=== PATIENT | male | born 1980 | race Caucasian/White ===

== ENCOUNTER 2017-07-29 17:35 | Emergency (ER) | payer SELFPAY ==
[~2017-07-29] VITALS: Ht 210.8 cm; Wt 59.9 kg
[~2017-07-29 17:35] MED LIST: EPIPEN 2-P0.3 MG/0.3; IBUPROFEN600 MG PO; LEVOFLOXACIN500 MG PO; NORCO 5-325 TA1 EACH PO; SOMA350 MG PO
--- NOTE | 2017-07-30 13:22 | EKG ---
[facility] [address] [facility] [place], [place] [address] Signed Normal sinus rhythm Normal ECG No previous ECGs available Confirmed by ARMANDO BARDALES MD ([id number] on 07/30/2017 1:21:59 PM Electronically Signed By: ARMANDO BARDALES MD 07/30/17 1322 PATIENT NAME: PARTHA BRODY Electrocardiogram DATE OF : 78 PHYSICIAN: ARMANDO BARDALES MD REPORT #: [id number] REPORT IS CONFIDENTIAL AND NOT TO BE RELEASED WITHOUT AUTHORIZATION
== END 2017-07-29 22:14 | disposition home or self-care (01) ==
LOC: ED 17:35
DX: E86.0 Dehydration (principal); B34.9 Viral infection, unspecified; F17.200 Nicotine dependence, unspecified, uncomplicated; Z91.030 Bee allergy status; Z88.5 Allergy status to narcotic agent; Z79.899 Other long term (current) drug therapy
CPT/HCPCS: 71020; 80053; 85025; 93005; 93010; 96360; 99284; J7030

== ENCOUNTER 2019-04-02 09:31 | Emergency (ER) | payer SELFPAY ==
[~2019-04-02] VITALS: Ht 210.8 cm; Wt 62.6 kg
[2019-04-02] MEDS ORDERED: ULTRAM50 MG PO (11:17)
== END 2019-04-02 11:26 | disposition home or self-care (01) ==
LOC: ED 09:31
DX: S99.911A Unspecified injury of right ankle, initial encounter (principal); F17.200 Nicotine dependence, unspecified, uncomplicated; Z91.030 Bee allergy status; Z88.5 Allergy status to narcotic agent; X50.1XXA Overexertion from prolonged static or awkward postures, initial encounter
CPT/HCPCS: 73610; 99283-25; 99406

== ENCOUNTER 2021-05-20 05:27 | Emergency (ER) | payer OTHER ==
[~2021-05-20] VITALS: Ht 182.9 cm; Wt 62.6 kg
[~2021-05-20 05:27] MED LIST changes: +ULTRAM50 MG PO
--- NOTE | 2021-05-21 21:31 | EKG ---
[facility] [address] [facility] [place] [address] Signed Normal sinus rhythm Lateral infarct , age undetermined Inferior infarct , age undetermined Abnormal ECG When compared with ECG of 29-JUL-2017 20:01, Questionable change in QRS axis Lateral infarct is now present Inferior infarct is now present Nonspecific T wave abnormality now evident in Inferior leads Nonspecific T wave abnormality now evident in Lateral leads Confirmed by KULDIP CASTRO DO ([id number]) on 05/21/2021 9:30:53 PM Electronically Signed By: KULDIP CASTRO DO 05/21/212130 PATIENT NAME: PARTHA BRODY Electrocardiogram DATE OF : 78 PHYSICIAN: KULDIP CASTRO DO REPORT #: [id number] REPORT IS CONFIDENTIAL AND NOT TO BE RELEASED WITHOUT AUTHORIZATION
== END 2021-05-20 08:00 | disposition home or self-care (01) ==
LOC: ED 05:27
DX: J93.9 Pneumothorax, unspecified (principal); F17.200 Nicotine dependence, unspecified, uncomplicated; Z88.5 Allergy status to narcotic agent; Z86.16 Personal history of COVID-19; Z91.038 Other insect allergy status
CPT/HCPCS: 71045; 80053; 84484; 85025; 85379; 96374; 99284-25; J1885

== ENCOUNTER 2022-06-10 11:24 | Emergency (ER) | payer OTHER ==
[~2022-06-10] VITALS: Ht 182.9 cm; Wt 55.6 kg
[2022-06-10] MEDS ORDERED: ZITHROMAX250 MG PO (12:31)
[2022-06-10] MEDS ORDERED: ONDANSETRON ODT8 MG PO (12:32)
== END 2022-06-10 13:16 | disposition home or self-care (01) ==
LOC: ED 11:24
DX: J18.9 Pneumonia, unspecified organism (principal); F17.200 Nicotine dependence, unspecified, uncomplicated; Z20.822 Contact with and (suspected) exposure to COVID-19; Z88.5 Allergy status to narcotic agent
CPT/HCPCS: 71045; 87502; 99283-25; A9270; C9803; U0003

== ENCOUNTER 2025-03-09 19:11 | Emergency (ER) | payer OTHER ==
[~2025-03-09] VITALS: Ht 182.9 cm; Wt 57.5 kg
[~2025-03-09 19:11] MED LIST changes: +ONDANSETRON ODT8 MG PO; +ZITHROMAX250 MG PO
[2025-03-09] MEDS ORDERED: TRAMADOL HCL 50 MG HOME.PACK PO ONE (20:45)
[2025-03-09 20:53] VITALS: BP 108/75
== END 2025-03-09 20:54 | disposition home or self-care (01) ==
LOC: ED 19:11
DX: S60.011A Contusion of right thumb without damage to nail, initial encounter (principal); F17.200 Nicotine dependence, unspecified, uncomplicated; W05.1XXA Fall from non-moving nonmotorized scooter, initial encounter; Z87.81 Personal history of (healed) traumatic fracture; Z88.5 Allergy status to narcotic agent; Z91.030 Bee allergy status
CPT/HCPCS: 73130; 99284; A9270